=== PATIENT | male | born 1955 | race Two or more races ===

== ENCOUNTER 2019-03-09 17:47 | Emergency (ER) | payer OTHER ==
[2019-03-09 18:00] VITALS: BP 127/83
--- NOTE | 2019-03-09 18:39 | UC ---
Abdominal Pain Male HPI - HPI Summary HPI Summary: ONSET LAST NIGHT OF SUPERFICIAL PAIN IN LEFT LOWER QUADRANT. 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 STATES HE HAD PANNICULECTOMY JULY 2018 AND THE TENDER SPOT IS RIGHT ON TOP OF THE SCAR TISSUE. - History of Current Complaint Chief Complaint: UCAbdominalPain Stated Complaint: ABDOMINAL PAIN Time Seen by Provider: 03/09/19 18:17 Hx Obtained From: Patient Onset/Duration: Sudden Onset, Lasting Hours, Still Present Timing: Constant Severity Initially: Moderate Severity Currently: Moderate Pain Intensity: 8 Pain Scale Used: 0-10 Numeric Location: Other - SCAR TISSUE LOWER ABDOMEN LEFT OF MIDLINE Character: Sharp Aggravating Factor(s): Other - PRESSURE Alleviating Factor(s): Rest Associated Signs And Symptoms: Positive: Negative - Allergies/Home Medications Allergies/Adverse Reactions: Allergies Allergy/AdvReac Type Severity Reaction Status Date / Time No Known Allergies Allergy Verified 03/09/19 18:00 PMH/Surg Hx/FS Hx/Imm Hx Cardiovascular History: Hypertension - Surgical History Surgical History: Yes Surgery Procedure, Year, and Place: RT. ANKLE - A[facility]ILLES REPAIR. [facility] - Family History Known Family History: Positive: Other - CVA - Social History Alcohol Use: None Substance Use Type: None Smoking Status (MU): Never Smoked Tobacco Review of Systems All Other Systems Reviewed And Are Negative: Yes Constitutional: Positive: Negative Skin: Positive: Negative Respiratory: Positive: Negative Cardiovascular: Positive: Negative Gastrointestinal: Positive: Abdominal Pain Genitourinary: Positive: Negative Physical Exam Triage Information Reviewed: Yes Appearance: Well-Appearing, No Pain Distress, Well-Nourished Vital Signs: Initial Vital Signs Temp 98.8 F 03/09/19 17:54 Pulse 58 03/09/19 17:54 Resp 12 03/09/19 17:54 BP 127/83 03/09/19 17:54 Pulse Ox 99 03/09/19 17:54 Vital Signs Reviewed: Yes Eyes: Positive: Conjunctiva Clear ENT: Positive: Hearing grossly normal Neck: Positive: Supple Respiratory: Positive: No respiratory distress, No accessory muscle use Cardiovascular: Positive: Pulses Normal Abdomen Description: Positive: Soft Musculoskeletal: Positive: No Edema Neurological: Positive: Alert Psychological: Positive: Age Appropriate Behavior Skin: Positive: Other - HYPERPIGMENTED SCAR TISSUE LOWER ABDOMEN. POINT TENDERNESS OVERLYING SCAR TISSUE JUST LEFT OF MIDLINE. COMPRESSIBLE AREA SIMILAR TO PRESSING ON A VARICOSITY. BLOOD OOZES FROM A 1MM OPENING IN THE SKIN WHEN AREA IS COMPRESSED. Abd Pain Male Course/Dx - Course Course Of Treatment: CONCERN FOR A SINUS TRACT IN THE AREA OF HIS LOWER ABDOMINAL SCAR TISSUE. PATIENT IS OOZING BLOOD OUT OF THE TENDER AREA. NO APPROPRIATE IMAGING AVAILABLE HERE IN THE . DUE TO A FAMILY EMERGENCY PATIENT WILL BE TRAVELING TO [place] TOMORROW SO I BELIEVE HE WOULD BENEFIT FROM HAVING THIS FURTHER EVALUATED TONIGHT IN THE EMERGENCY ROOM. HE WILL GO DIRECTLY THERE FROM HERE. - Differential Dx/Clinical Impression Provider Diagnosis: Draining cutaneous sinus tract - Physician Notification/Consults Discussed Patient Care With: Shakila Pérez - TO [facility] [place] [facility] BY PRIVATE CAR Time Discussed With Above Provider: 18:45 Instructed by Provider To: MD Will See In ED Discharge - Sign-Out/Discharge Documenting (check all that apply): Patient Departure All imaging exams completed and their final reports reviewed: No Studies - Discharge Plan Condition: Stable Disposition: TRANS HIGHER LVL OF CARE FAC Referrals: Kendal Yeboah MD [Primary Care Provider] - Additional Instructions: I AM CONCERNED THAT YOU HAVE DEVELOPED A SINUS TRACT IN THE AREA OF YOUR SCAR TISSUE. THIS REQUIRES FURTHER EVALUATION THAN WHAT IS AVAILABLE HERE IN THE . GO TO THE [facility] FROM HERE FOR FURTHER EVALUATION. - Billing Disposition and Condition Condition: STABLE Disposition: Trans Higher Lvl of Care Fac
== END 2019-03-09 18:58 | disposition short-term general hospital (02) ==
LOC: UCEAST 17:47
DX: K63.2 Fistula of intestine (principal); I10 Essential (primary) hypertension
CPT/HCPCS: 99212; G0463

== ENCOUNTER 2019-03-09 19:06 | Emergency (ER) | payer OTHER ==
--- NOTE | 2019-03-09 19:39 | ED ---
Skin Complaint - HPI Summary HPI Summary: Pt is 63 y/o male with hx of hypertension who presents with pinpoint tenderness with palpation to the left lower abdomen at his belt line, consistent with abscess. He was seen at [facility] and transferred here for further workup and treatment. He notes drainage of the site. Denies having had an abscess previously. Denies fevers, chills, nausea, vomiting, abdominal pain, chest pain , cough, headache, dizziness. Denies alcohol and tobacco use. Previous surgical hx is significant for abdominoplasty. - History of Current Complaint Chief Complaint: EDAbdPain Time Seen by Provider: 03/09/19 19:24 Stated Complaint: ABD PAIN PER PT Hx Obtained From: Patient Onset/Duration: Started Days Ago Timing: Intermittent Onset Severity: Mild Current Severity: Moderate Pain Intensity: 8 Pain Scale Used: 0-10 Numeric Skin Location: Discrete - Left lower abdomen, belt line. Character: Redness, Raised Aggravating Symptom(s): Clothing, Touch Alleviating Symptom(s): Nothing Associated Signs & Symptoms: Negative - Allergy/Home Medications Allergies/Adverse Reactions: Allergies Allergy/AdvReac Type Severity Reaction Status Date / Time No Known Allergies Allergy Verified 03/09/19 19:18 PMH/Surg Hx/FS Hx/Imm Hx Previously Healthy: No Endocrine/Hematology History: Denies: Hx Diabetes Cardiovascular History: Reports: Hx Hypertension Denies: Hx Pacemaker/ICD GI History: Reports: Hx Gastroesophageal Reflux Disease History: Denies: Hx Renal Disease Sensory History: Denies: Hx Hearing Aid Psychiatric History: Denies: Hx Panic Disorder - Surgical History Surgical History: Yes Surgery Procedure, Year, and Place: RT. ANKLE - ACHILLES REPAIR. Abdominoplasty 07/31/2018 Infectious Disease History: No Infectious Disease History: Denies: Traveled Outside the [place] in Last 30 Days - Family History Known Family History: Positive: Other - CVA - Social History Alcohol Use: None Hx Substance Use: No Substance Use Type: Reports: None Hx Tobacco Use: No Smoking Status (MU): Never Smoked Tobacco Review of Systems Negative: Fever, Chills Negative: Chest Pain Negative: Cough Negative: Abdominal Pain, Vomiting, Diarrhea, Nausea Positive: Other - Abscess to left lower abdomen at belt line Negative: Headache All Other Systems Reviewed And Are Negative: Yes Physical Exam Triage Information Reviewed: Yes Vital Signs On Initial Exam: Initial Vitals Temp Pulse Resp BP Pulse Ox 99.1 F 60 16 138/92 98 03/09/19 19:16 03/09/19 19:16 03/09/19 19:16 03/09/19 19:16 03/09/19 19:16 Vital Signs Reviewed: Yes Appearance: Positive: Well-Appearing, No Pain Distress Skin: Positive: Warm, Skin Color Reflects Adequate Perfusion, Dry, Other - Raised red lesion with minimal drainage to left lower abdomen at belt line involving the panniculectomy scar that spans across entire abdomen horizontally. Tenderness with palpation. No streaking. No warmth. Head/Face: Positive: Normal Head/Face Inspection Eyes: Positive: Normal ENT: Positive: Normal ENT inspection Respiratory/Lung Sounds: Positive: Clear to Auscultation. Negative: Rales, Rhonchi, Wheezes Cardiovascular: Positive: RRR. Negative: Murmur, Rub Abdomen Description: Positive: Nontender, Soft. Negative: Distended, Hernia @ Bowel Sounds: Positive: Present Musculoskeletal: Positive: Normal, Strength/ROM Intact Neurological: Positive: Normal, Sensory/Motor Intact, Alert, Oriented to Person Place, Time Psychiatric: Positive: Normal Procedures - Incision and Drainage Left Lower Abdomen Site: Left lower abdomen at belt line involving panniculectomy scar Anesthesia: Local, Lidocaine Instrument(s): Scalpel Diagnostics - Vital Signs Vital Signs Temp Pulse Resp BP Pulse Ox 03/09/19 19:16 99.1 F 60 16 138/92 98 - Laboratory Lab Statement: Any lab studies that have been ordered have been reviewed, and results considered in the medical decision making process. - EKG Time 19:23 Cardiac Rate: Bradycardia - Rate 58 EKG Rhythm: Sinus Rhythm ST Segment: Normal Ectopy: None Summary of EKG Findings: Normal axis, normal interval Course/Dx - Course Course Of Treatment: 63 y/o male with tender, raised, red, draining lesion at left lower abdomen. I&D performed with only blood expressed, consistent with hematoma with history of panniculectomy. Wound not packed. Antibiotics not indicated at this time. Pt discharged home. Assessment/Plan: Small bleeding area of tenderness in his surgical scar. I and D performed and found to be hematoma. Seen in collaboration with the PA student. - Differential Diagnoses - Skin Complaint Differential Diagnoses: Abscess, Other - hematoma, hernia - Diagnoses Provider Diagnoses: Hematoma of abdominal wall Discharge - Sign-Out/Discharge Documenting (check all that apply): Patient Departure Patient Received Moderate/Deep Sedation with Procedure: No - Discharge Plan Condition: Improved Disposition: HOME Patient Education Materials: Hematoma (ED) Referrals: Kendal Yeboah MD [Primary Care Provider] - Additional Instructions: Keep clean and dry. Dressed with Band-Aid or gauze. Return with concern for infection, worse or other concerns. - Billing Disposition and Condition Condition: IMPROVED Disposition: Home - Attestation Statements Document Initiated by Scribe: Yes Documenting Scribe: MIRIAN Nuno Provider For Whom Scribe is Documenting (Include Credential): Dr. Dale Scribe Attestation: Isabella Grossman PA-S, scribed for Dr. Dale on 03/09/19 at 2051. Scribe Documentation Reviewed: Yes Provider Attestation: The documentation as recorded by the scribolivier, MIRIAN Nuno accurately reflects the service I personally performed and the decisions made by Dr. Suyapa knox Status of Scribe Document: Viewed
[2019-03-09 20:04] VITALS: BP 121/83
== END 2019-03-09 20:07 | disposition home or self-care (01) ==
LOC: ED 19:06
DX: L02.211 Cutaneous abscess of abdominal wall (principal); R10.9 Unspecified abdominal pain; K21.9 Gastro-esophageal reflux disease without esophagitis
CPT/HCPCS: 10060; 93005; 99282